=== PATIENT | male | born 1975 | race Hispanic/Latino ===

== ENCOUNTER → 2019-03-29 | Outpatient (CLI) | payer BC ==
[~2019-03-29] MED LIST: LEVAQUIN500 MG PO; TENORMIN50 MG PO
--- NOTE | 2019-03-29 14:59 | Diagnostic Imaging Report ---
EXAM: FL BARIUM ENEMA AIR AND BARIUM DOUBLE CONTRAST INDICATION: Recurrent diverticulitis COMPARISON: Abdomen and pelvis CT of 03/15/2018 FINDINGS: APPLIED BIOLOGY PROFESSOR: The bowel gas pattern is non-obstructive. Multiple bilateral pelvic phleboliths noted RECTUM: Mucosa: Unremarkable. Distensibility: Normal. SIGMOID COLON: Severe sigmoid and distal descending diverticulosis. Mild luminal narrowing in a focal segment of sigmoid colon may represent sequela of prior diverticulitis. Normal appearance of ascending, transverse, and proximal descending colon. CECUM AND APPENDIX: Normally distensible and demonstrates normal contours and mucosal pattern. Fluoroscopy Time: 0.6 minutes Radiation dose: 22.5 mGy IMPRESSION: Sigmoid and distal descending colon diverticulosis with sequela of prior diverticulitis resulting in an area of focal narrowing. No evidence of mucosal masses, ulcers or fistulous tract. Signed by: Eileen Julien MD on 03/29/2019 2:56 PM
== END ==
LOC: DX 12:35
PROVIDERS: ATTEND Surgery
DX: K57.92 Diverticulitis of intestine, part unspecified, without perforation or abscess without bleeding (principal)
CPT/HCPCS: 74280

== ENCOUNTER 2019-11-13 06:10 | Inpatient (IN) | payer BC, OTHER ==
[2019-11-08 15:21] LABS: BASOPHILS # (AUTO) 0.1 (0.0-0.1); EOSINOPHILS # (AUTO) 0.2 (0.0-0.4); EOSINOPHILS % 1.5 % (0.0-6.0); HEMATOCRIT 42.7 % (38.2-49.6); HEMOGLOBIN 13.8 g/dL (14.0-18.0); LYMPHOCYTES # (AUTO) 2.8 (1.0-3.2); LYMPHOCYTES % 26.5 % (18.0-39.1); MEAN CORPUSCULAR HEMOGLOBIN 28.8 pg (28-32); MEAN CORPUSCULAR HGB CONC 32.3 g/dL (31-35); MEAN CORPUSCULAR VOLUME 89.1 fL (81-99); MONOCYTES % 9.2 % (4.4-11.3); NEUTROPHILS # (AUTO) 6.4 (2.1-6.9); NEUTROPHILS % 61.2 % (38.7-80.0); PLATELET COUNT 249 x10e3/uL (140-360); RED BLOOD COUNT 4.79 x10e6/uL (4.3-5.7); RED CELL DISTRIBUTION WIDTH 14.5 % (11.7-14.4)
[2019-11-08 15:41] LABS: ALANINE AMINOTRANSFERASE 59 IU/L (0-55); ALBUMIN 3.7 g/dL (3.5-5.0); ALKALINE PHOSPHATASE 50 IU/L (40-150); ANION GAP 10.8 mmol/L (8-16); BLOOD UREA NITROGEN 12 mg/dL (7-26); BUN/CREATININE RATIO 12 (6-25); CALCIUM 8.8 mg/dL (8.4-10.2); CARBON DIOXIDE 30 mmol/L (22-29); CHLORIDE 107 mmol/L (98-107); EST GLOMERULAR FILTRATION RATE > 60 ML/MIN (60-); GLUCOSE 95 mg/dL (74-118); POTASSIUM 3.8 mmol/L (3.5-5.1); SODIUM 144 mmol/L (136-145)
[~2019-11-13] VITALS: Ht 165.1 cm; Wt 89.8 kg
[~2019-11-13 06:10] MED LIST changes: +TENORETIC 50 T1 EACH PO; +TESTOSTERO100 MG/1 M INJ
[2019-11-13] MEDS ORDERED: BUPIVACAINE HCL 0.5% INJ 30 ML VIAL INJ ONE (08:37)
[2019-11-13] MEDS ORDERED: MINERAL OIL STERILE 10ML VIAL ONE (08:37)
[2019-11-13] MEDS ORDERED: BUPIVACAINE 0.25%/EPI 30ML SDV INJ ONE (08:37)
[2019-11-13] MEDS ORDERED: ACETAMINOPHEN 1000 MG/100 ML 100 ML IV ONE (12:51)
[2019-11-13] MEDS ORDERED: HYDROMORPHONE 0.2MG/ML-SOD CHL 30ML PCA SYRINGE IV PRN (13:15)
[2019-11-13] MEDS ORDERED: NALOXONE HCL INJ 0.4 MG/ML AMP IV PRN (13:15)
[2019-11-13] MEDS ORDERED: ACETAMINOPHEN 1000 MG/100 ML IV PRN (13:15)
[2019-11-13] MEDS ORDERED: ONDANSETRON HCL INJ 2MG/ML 2ML 2 MG/ML VIAL ONE ×2 (13:35→21:26)
[2019-11-13] MEDS ORDERED: FENTANYL CITRATE/PF 100MCG/2 ML INJ ONE (13:36)
[2019-11-13] MEDS ORDERED: MEPERIDINE HCL INJ 25 MG/ML VIAL ONE (13:36)
--- NOTE | 2019-11-13 14:50 | NUR ---
Patient arrived to the floor from PACU. He is alert and oriented x3. He is connected to Dilaudid DIRECTOR OF PRODUCT DEVELOPMENT pump. His trochar sites are covered with bandaids, dry and intact. NG tube to right nare is connected to LIWS. Patient was educated on how to use the call light, bed alarm is on as patient is using a [employer]ELOP[employer] pump.
[2019-11-13 15:05] VITALS: BP 141/91
--- NOTE | 2019-11-13 15:37 | NUR ---
Patient is resting in bed, he wakes easily to voice, he denies needing anything at this time. Call light in reach, bed alarm on.
--- NOTE | 2019-11-13 15:41 | Operative Report ---
DATE OF PROCEDURE: 11/13/2019 SURGEON: Ameya Reynolds MD PREOPERATIVE DIAGNOSIS: Recurrent sigmoid diverticulitis. POSTOPERATIVE DIAGNOSIS: Recurrent sigmoid diverticulitis. OPERATIONS PERFORMED: Laparoscopic-assisted left colon resection with mobilization of the splenic flexure and transanal stapled anastomosis. ASSISTANTS: 1. Dr. Deepak Reynolds. 2. KP Grimes. ANESTHESIA: General. COMPLICATIONS: None. ESTIMATED BLOOD LOSS: 75 mL. DESCRIPTION OF PROCEDURE: With the patient lying in bed in the supine position under good general endotracheal anesthesia, the abdomen was prepped with Betadine solution and draped in the usual manner. The patient was placed in the stirrups with the legs up. The Veress needle was introduced into the umbilicus and pneumoperitoneum was established without any difficulty. An 11 mm trocar was placed into the umbilicus and a 10 mm video laparoscope was placed into the intraabdominal cavity under direct vision. A 5 mm trocar was placed in the right upper quadrant and another one was placed in the left lower quadrant and another one was placed in the suprapubic region. Video laparoscopy at this point revealed the left colon to be rather stuck to the lateral gutter on the left side. The patient had a very redundant splenic flexure with a lot of adhesions and a lot of redundant omentum in the area. The left colon was then slowly and carefully mobilized of the lateral gutter using the Harmonic Scalpel and was slowly and carefully swung medially. The splenic flexure was slowly and carefully brought down away from the spleen. The lesser sac was then entered and the colon and the stomach were , and the splenic flexure was totally and completely brought down, so that he would reach at the bottom without any problems. At this point, the left lower quadrant incision was made, it was carried down through the subcutaneous tissue and a muscle-splitting incision was carried down into the peritoneum. The abdomen was opened and entered, and the hand port was then placed. The rectosigmoid colon was then mobilized all the way up and the colon was then divided at the level of the distal sigmoid colon and using the EnSeal device. The mesentery of the colon was slowly and carefully mobilized proximally without any difficulty all the way up to the descending colon, which he usually reach down into the pelvis now due to the previous mobilization of the splenic flexure. The descending colon was then divided with an application of SHAYNA-75 stapler and that specimen was sent for pathological examination. The distal sigmoid colon was then slowly and carefully mobilized all the way down to the rectosigmoid junction and circumferentially dissected using the contour device. The rectosigmoid junction was divided with the stapler and the distal sigmoid colon was sent for pathological examination. After this was done, the proximal colon was then prepared for the anastomosis. Staple line was removed and a #29 EEA stapler was placed and sutured in place with a pursestring of 0 Prolene. We then went from below and dilated the anus all the way up to the 29 dilator. The 29 stapler was then introduced transanally and brought out right through the anterior aspect of the staple line and the anvil and the stapler were then joined without any difficulty. The stapler was closed and fired two perfect donuts were obtained, and gloves and instruments were changed. The anastomosis was then reinforced with a few sutures of 3-0 silk to take the tension off. The abdomen was then irrigated with saline solution and all the excess fluid was aspirated. Perfect hemostasis was ascertained. Laparoscopy was then performed and there was no sign of any bleeding intra-abdominally and the pneumoperitoneum was then evacuated and the wounds were then closed in layers. The left lower quadrant wound was closed with a running suture of #1 Vicryl for the peritoneum. The fascia was then also closed with a running suture of #1 Vicryl. The subcutaneous tissue was approximated with 3-0 chromic and the skin was closed with clips, dressings were applied. The sponge, lap, and needle counts were correct. The patient tolerated the procedure well and returned to the recovery room in stable condition. MD DON Woodruff/RIGOBERTO /[id number]
[2019-11-13] MEDS: DEXTROSE 5%/LACTATED RINGERS 1,000 ML IV SCH (16:47)
[2019-11-13] MEDS: CEFOXITIN 1GM/ D5W 50ML 50 ML IV SCH ×2 (16:47→22:08)
[2019-11-13] MEDS: PANTOPRAZOLE 40 MG 10ML VIAL IV SCH (16:47)
[2019-11-13] MEDS: SODIUM CHLORIDE 0.9% 250ML IRRIG IR SCH ×2 (17:48→22:08)
--- NOTE | 2019-11-13 19:34 | NUR ---
MANAGER VIDEO Pump was received at 18.5 ml left over and this falls short of the original count of 30ml. Advised day nurse Clotilde of the Issue at this point. supervisor cook house advised as well of the issue. There is no snowden at this time apparently to open the pump for a count. supervisor cook house notified. At this time the Day nurse has departed the shift. Addendum: 11/13/19 at 1939 by Frances Ford RN Two nurses to clear the pump and adjust the count at this point until supervisor cook house can review the Pump.
[2019-11-13 20:00] VITALS: BP 135/90
[2019-11-13 20:35] VITALS: BP 135/90
[2019-11-13] MEDS ORDERED: ROCURONIUM BROMIDE 10 MG/ML 5ML VIAL IV ONE (21:26)
[2019-11-13] MEDS ORDERED: ETOMIDATE 2 MG/ML 10 ML INJ IV ONE (21:26)
[2019-11-13] MEDS ORDERED: LIDOCAINE HCL 2% LOCAL INJ 5 ML SDV VIAL INJ ONE (21:26)
[2019-11-13] MEDS ORDERED: ATROPINE SULFATE 1 MG/ML VIAL ONE (21:26)
[2019-11-13] MEDS ORDERED: SEVOFLURANE INHAL SOLN 250 ML PEN BTL ONE (21:26)
[2019-11-13] MEDS ORDERED: NEOSTIGMINE 1 MG/ML 10ML VIAL ONE (21:26)
[2019-11-13] MEDS ORDERED: ACETAMINOPHEN 1000 MG/100 ML IV ONE (21:26)
[2019-11-13] MEDS ORDERED: CEFOXITIN SOD 1 GM VIAL ONE (21:26)
[2019-11-13] MEDS ORDERED: KETOROLAC TROMETHAMINE 30 MG/ML VIAL ONE (21:26)
[2019-11-14] VITALS: BP 144/94
[2019-11-14] MEDS: DEXTROSE 5%/LACTATED RINGERS 1,000 ML IV SCH ×3 (03:00→16:00)
[2019-11-14] MEDS: HYDROMORPHONE 0.2MG/ML-SOD CHL 30ML PCA SYRINGE IV PRN (03:52)
[2019-11-14] MEDS: SODIUM CHLORIDE 0.9% 250ML IRRIG IR SCH ×6 (03:53→22:40)
[2019-11-14 05:41] LABS: ANION GAP 10.3 mmol/L (8-16); BLOOD UREA NITROGEN 15 mg/dL (7-26); BUN/CREATININE RATIO 16 (6-25); CALCIUM 7.9 mg/dL (8.4-10.2); CARBON DIOXIDE 28 mmol/L (22-29); CHLORIDE 104 mmol/L (98-107); CREATININE, SERUM 0.95 mg/dL (0.72-1.25); EST GLOMERULAR FILTRATION RATE > 60 ML/MIN (60-); GLUCOSE 121 mg/dL (74-118); POTASSIUM 4.3 mmol/L (3.5-5.1); SODIUM 138 mmol/L (136-145)
[2019-11-14 06:49] LABS: BASOPHILS # (AUTO) 0.1 (0.0-0.1); BASOPHILS % 0.6 % (0.0-1.0); EOSINOPHILS # (AUTO) 0.1 (0.0-0.4); EOSINOPHILS % 0.9 % (0.0-6.0); HEMATOCRIT 40.1 % (38.2-49.6); HEMOGLOBIN 12.6 g/dL (14.0-18.0); LYMPHOCYTES # (AUTO) 1.8 (1.0-3.2); LYMPHOCYTES % 16.2 % (18.0-39.1); MEAN CORPUSCULAR HEMOGLOBIN 28.5 pg (28-32); MEAN CORPUSCULAR HGB CONC 31.4 g/dL (31-35); MEAN CORPUSCULAR VOLUME 90.7 fL (81-99); MONOCYTES # (AUTO) 1.1 (0.2-0.8); MONOCYTES % 9.9 % (4.4-11.3); NEUTROPHILS # (AUTO) 7.9 (2.1-6.9); PLATELET COUNT 259 x10e3/uL (140-360); RED BLOOD COUNT 4.42 x10e6/uL (4.3-5.7)
[2019-11-14 08:12] VITALS: BP 139/86
--- NOTE | 2019-11-14 10:30 | NUR ---
Dr. Reynolds is here making rounds. I notified him when I attempted to irrigate NG tube that I met a lot of resistance. Dr. Reynolds at the bedside and adjusted the NG tube, irrigated the tube and reconnected to suction. NG tube is now flushing and suctioning fine. Dr. Reynolds encouraged the patient to ambulate today.
[2019-11-14 11:36] VITALS: BP 150/99
[2019-11-14] MEDS: PROMETHAZINE 12.5MG/ NACL 0.9% 12.5 MG/50 ML BAG IV PRN ×2 (11:50→20:20)
[2019-11-14] MEDS ORDERED: ACETAMINOPHEN 1000 MG/100 ML IV PRN (14:30)
[2019-11-14 15:53] VITALS: BP 162/99
--- NOTE | 2019-11-14 16:15 | NUR ---
Patient ambulated with standby assist to the bathroom, he stated he passed some gas, but did not have a BM.
[2019-11-14] MEDS: PANTOPRAZOLE 40 MG 10ML VIAL IV SCH (16:37)
--- NOTE | 2019-11-14 19:10 | NUR ---
RECEIVED REPORT FROM PREVIOUS NURSE. CALL LIGHT WITHIN REACH. PATIENT IN BED. ROUNDING PERFORMED.
[2019-11-14 20:00] VITALS: BP 143/99
[2019-11-15] VITALS (8 sets, daily range): BP systolic 146–166; BP diastolic 99–109
[2019-11-15] MEDS: SODIUM CHLORIDE 0.9% 250ML IRRIG IR SCH ×5 (02:00→18:00)
[2019-11-15 05:14] LABS: BASOPHILS # (AUTO) 0.1 (0.0-0.1); BASOPHILS % 0.5 % (0.0-1.0); EOSINOPHILS # (AUTO) 0.1 (0.0-0.4); EOSINOPHILS % 0.8 % (0.0-6.0); HEMOGLOBIN 13.1 g/dL (14.0-18.0); LYMPHOCYTES # (AUTO) 1.6 (1.0-3.2); LYMPHOCYTES % 12.3 % (18.0-39.1); MEAN CORPUSCULAR HEMOGLOBIN 28.6 pg (28-32); MEAN CORPUSCULAR HGB CONC 31.2 g/dL (31-35); MEAN CORPUSCULAR VOLUME 91.7 fL (81-99); MONOCYTES % 7.7 % (4.4-11.3); NEUTROPHILS # (AUTO) 10.3 (2.1-6.9); NEUTROPHILS % 78.2 % (38.7-80.0); PLATELET COUNT 254 x10e3/uL (140-360); RED BLOOD COUNT 4.58 x10e6/uL (4.3-5.7); RED CELL DISTRIBUTION WIDTH 14.6 % (11.7-14.4)
[2019-11-15 05:33] LABS: ANION GAP 11.1 mmol/L (8-16); BLOOD UREA NITROGEN 10 mg/dL (7-26); BUN/CREATININE RATIO 11 (6-25); CALCIUM 8.8 mg/dL (8.4-10.2); CARBON DIOXIDE 28 mmol/L (22-29); CHLORIDE 101 mmol/L (98-107); EST GLOMERULAR FILTRATION RATE > 60 ML/MIN (60-); GLUCOSE 125 mg/dL (74-118); POTASSIUM 4.1 mmol/L (3.5-5.1); SODIUM 136 mmol/L (136-145)
--- NOTE | 2019-11-15 07:10 | NUR ---
GAVE BEDSIDE SHIFT REPORT TO ONCOMING NURSE. CALL LIGHT WITHIN REACH. PATIENT IN BED. HOURLY ROUNDING PERFORMED
--- NOTE | 2019-11-15 07:19 | NUR ---
RAMIRES WAS REMOVED.
[2019-11-15] MEDS: DEXTROSE 5%/LACTATED RINGERS 1,000 ML IV SCH ×2 (07:45→18:17)
[2019-11-15] MEDS: HYDROMORPHONE 0.2MG/ML-SOD CHL 30ML PCA SYRINGE IV PRN (12:39)
--- NOTE | 2019-11-15 14:56 | NUR ---
NG tube removed from right nare. pt complaining of discomfort to abdomen after removal.
[2019-11-15] MEDS: PANTOPRAZOLE 40 MG 10ML VIAL IV SCH (16:28)
--- NOTE | 2019-11-15 16:29 | NUR ---
scientific manager discontinued. 22ML wasted in pyxis. patient ambulated around room and urinated. IV push hydromorphone given.
[2019-11-15] MEDS: HYDROMORPHONE 1MG/1ML INJ IV PRN ×3 (16:30→21:47)
--- NOTE | 2019-11-15 19:00 | NUR ---
RECEIVED REPORT FROM PREVIOUS NURSE. CALL LIGHT WITHIN REACH. PATIENT IN BED. ROUNDING PERFORMED.
[2019-11-15] MEDS: BISACODYL 10 MG SUPP PR SCH (21:00)
[2019-11-16] VITALS (8 sets, daily range): BP systolic 143–155; BP diastolic 96–107
[2019-11-16] MEDS: DEXTROSE 5%/LACTATED RINGERS 1,000 ML IV SCH ×2 (00:02→10:51)
[2019-11-16] MEDS: HYDROMORPHONE 1MG/1ML INJ IV PRN ×2 (01:25→06:08)
[2019-11-16] MEDS: PROMETHAZINE 12.5MG/ NACL 0.9% 12.5 MG/50 ML BAG IV PRN ×2 (01:28→06:15)
--- NOTE | 2019-11-16 07:05 | NUR ---
GAVE BEDSIDE REPORT TO ONCOMING NURSE. CALL LIGHT WITHIN REACH. PATIENT IN BED. HOURLY ROUNDING PERFORMED.
[2019-11-16] MEDS: BISACODYL 10 MG SUPP PR SCH (09:00)
[2019-11-16 09:07] LABS: BASOPHILS # (AUTO) 0.1 (0.0-0.1); BASOPHILS % 0.9 % (0.0-1.0); EOSINOPHILS # (AUTO) 0.3 (0.0-0.4); EOSINOPHILS % 2.2 % (0.0-6.0); HEMATOCRIT 39.1 % (38.2-49.6); HEMOGLOBIN 12.4 g/dL (14.0-18.0); LYMPHOCYTES % 16.5 % (18.0-39.1); MEAN CORPUSCULAR HEMOGLOBIN 28.4 pg (28-32); MEAN CORPUSCULAR HGB CONC 31.7 g/dL (31-35); MEAN CORPUSCULAR VOLUME 89.7 fL (81-99); MONOCYTES # (AUTO) 1.1 (0.2-0.8); MONOCYTES % 8.8 % (4.4-11.3); NEUTROPHILS # (AUTO) 8.5 (2.1-6.9); NEUTROPHILS % 71.1 % (38.7-80.0); PLATELET COUNT 263 x10e3/uL (140-360); RED BLOOD COUNT 4.36 x10e6/uL (4.3-5.7); RED CELL DISTRIBUTION WIDTH 14.3 % (11.7-14.4)
[2019-11-16 09:21] LABS: ANION GAP 10.7 mmol/L (8-16); BLOOD UREA NITROGEN 9 mg/dL (7-26); BUN/CREATININE RATIO 11 (6-25); CALCIUM 8.7 mg/dL (8.4-10.2); CARBON DIOXIDE 28 mmol/L (22-29); CHLORIDE 102 mmol/L (98-107); CREATININE, SERUM 0.82 mg/dL (0.72-1.25); EST GLOMERULAR FILTRATION RATE > 60 ML/MIN (60-); GLUCOSE 109 mg/dL (74-118); POTASSIUM 3.7 mmol/L (3.5-5.1); SODIUM 137 mmol/L (136-145)
[2019-11-16] MEDS: HYDROCODONE/APAP 7.5MG-325MG 1 EA TAB PO PRN ×2 (11:09→16:46)
[2019-11-16] MEDS: PANTOPRAZOLE 40 MG 10ML VIAL IV SCH (16:46)
--- NOTE | 2019-11-16 19:10 | NUR ---
Patient visited in room during nursing rounds. Patient alert and oriented x3. Ambulatory in room prn. Pt on Full liquid diet and has been tolerating diet fine. Pt has off and on abdominal pain. But otherwise condition stable. IV saline locked. S/P Colon Resection on 11/13/19 with 4 trocar site (all covered with band aid) with LLQ with pressure dressing (C/D/I) and stretch tape. Call troy within reach. Will monitor pt closely.
[2019-11-17] VITALS (8 sets, daily range): BP systolic 132–153; BP diastolic 85–98
[2019-11-17] MEDS: HYDROCODONE/APAP 7.5MG-325MG 1 EA TAB PO PRN ×2 (09:39)
[2019-11-17] MEDS: PANTOPRAZOLE 40 MG 10ML VIAL IV SCH (16:53)
[2019-11-17] MEDS: ACETAMINOPHEN/CODEINE 300MG - 30MG TAB PO PRN ×2 (18:15→23:03)
--- NOTE | 2019-11-17 19:10 | NUR ---
Patient visited in room during nursing rounds. Patient alert and oriented x3. Ambulatory in room prn. Pt on regular diet and pt stated he feels some discomfort at this time and plan to talk to MD tomorrow about it. Pt has off and on abdominal pain (especially on trocar sites). But otherwise condition stable. IV saline locked. S/P Colon Resection on 11/13/19 with 4 trocar site (all covered with band aid) with LLQ with pressure dressing (C/D/I) and stretch tape. Call troy within reach. Will monitor pt closely.
[2019-11-18 00:38] VITALS: BP 149/94
[2019-11-18 08:21] VITALS: BP 158/104
[2019-11-18 08:22] VITALS: BP 158/104
[2019-11-18] MEDS: ACETAMINOPHEN/CODEINE 300MG - 30MG TAB PO PRN ×2 (09:42→15:15)
[2019-11-18 11:32] VITALS: BP 170/111
[2019-11-18 16:43] VITALS: BP 159/99
[2019-11-18] MEDS: PANTOPRAZOLE 40 MG 10ML VIAL IV SCH (17:03)
[2019-11-18] MEDS ORDERED: TYLENOL WITH C1 EACH PO (17:50)
[2019-11-18] MEDS ORDERED: LEVAQUIN500 MG PO (17:50)
--- NOTE | 2019-11-18 18:28 | NUR ---
PATIENT DISCHARGED HOME, PRESCRIPTION GIVEN, 2 IV s removed with tip intact, denies any pain this time, Alert with no distress, discharge instruction given, transported via wheelchair to front lobby, here to pick patient
== END 2019-11-18 18:23 | disposition home or self-care (01) | DRG 331 ==
LOC: OR 06:10 → PACU V 13:15 → MED/SURG 14:56
PROVIDERS: ADMIT Surgery; ATTEND Surgery
PROC: 0DTG4ZZ Resection of Left Large Intestine, Percutaneous Endoscopic Approach (ICD-10-PCS; principal; 2019-11-13 09:31)
DX: K57.30 Diverticulosis of large intestine without perforation or abscess without bleeding (principal); I10 Essential (primary) hypertension; Z11.59 Encounter for screening for other viral diseases
CPT/HCPCS: 36415; 80048; 80053; 85025; 88302; 88307; 93005; C1766; J0461; J0694; J1170; J1885; J2001; J2175; J2405; J2550; J2710; J3010; U0002